=== PATIENT | female | born 1945 | race Caucasian/White ===

== ENCOUNTER 2016-10-01 07:32 | Day surgery (SDC) | payer MEDICARE ==
--- NOTE | ~2016-10-01 | OP ---
Record Of Operation [facility] [address] [place]. [address] NAME: JAC MEJIA : 41 [place] [facility] [id number] AGE: 71 ADM/REG DATE : 10/01/16 MR#: [id number] REPORT SERV DATE: 10/01/16 DICTATED BY: HAN BARRERA JR. DATE: 10/01/16 REPORT STATUS : Draft TRANSCRIBED BY: MODL DATE: 10/01/16 DATE OF PROCEDURE: REASON FOR SURGERY: This 71-year-old patient has been evaluated extensively concerning recurrent carcinoma of the left breast. She was initially treated in 2002 with breast preservation surgery, radiation therapy, chemotherapy, and five years of tamoxifen. She has developed a very interesting problem that the only tumor found on the left was an incidental ultrasound finding that really had nothing to do with her presentation, although lobule in the different area. A 3 mm lesion was biopsied and was showing to be hormone favorable malignancy. She did have a positive lymph node on needle biopsy, but this appears to be a solitary on the MRI and other evaluation. Her case was presented at the weekly breast conference and the options of mastectomy with or without reconstruction has been offered. Unfortunately, an axillary dissection is now in order as she has a clinically involved node in the previously irradiated breast. The risk of lymphedema will escalate at this point to a size 1 and 4, but specifically, there has been no added port for the axilla, and so hopefully the risk of lymphedema is actually somewhat less than this. The potential wound healing issues have been addressed with the patient's previous radiation therapy. PREOPERATIVE DIAGNOSIS: Recurrent carcinoma of the left breast. POSTOPERATIVE DIAGNOSIS: Recurrent carcinoma of the left breast. SURGEON: Han Barrera M.D. SURGERIES PERFORMED: Left mastectomy and axillary dissection. PROCEDURE IN DETAIL: Under general anesthesia, the patient was prepped and draped in supine position in the usual sterile fashion. A type of mastectomy was performed using a superior based flap down to the inframammary fold. The entire breast mound was marked, and the superior base flap was marked and incised. Flaps were elevated in each direction to incorporate the entire breast mound. This was tailored into the low axilla. The breast was then removed from above downward incorporating the fascia. An axillary dissection was then performed. With adequate retraction of the muscles, level 2, then level 1 nodes were dissected from medial to lateral from off the axillary vein. Bridging lymphatic and venous tissue were clipped and divided. The long thoracic and thoracodorsal bundles were preserved. As the dissection was carried off inferiorly, the specimen was removed and oriented for pathology. The wound was irrigated and hemostasis was obtained. Two suction drains were inserted and secured to the skin with the Prolene. The wound was closed with two layers of Monocryl. The patient tolerated the procedure well without complications. ESTIMATED BLOOD LOSS: Less than 25 mL. Record Of Operation [address] [place]. [address] NAME: JAC MEJIA : 41 [place] [facility] [place]#: [id number] AGE: 71 ADM/REG DATE : 10/01/16 MR#: [id number] REPORT SERV DATE: 10/01/16 DICTATED BY: HAN BARRERA JR. DATE: 10/01/16 REPORT STATUS : Draft TRANSCRIBED BY: MYRON DATE: 10/01/16 SPONGE COUNT: Correct. /MYRON Han Barrera Jr., M.D. / [id number] CC: Dimitrios Baez Jr., M.D. [facility]
[~2016-10-01 07:32] MED LIST: ACEBUTOLOL PO; ADVAIR INH; ALLEGRA180 PO; ATV1 PO; CITRACAL PO; FISH OIL1200 MG PO; FLONASE NAS; FLURBIPROFEN100 MG OR; ILA60 PO; KLOR-CON 1010 MEQ PO; LEVOTHYROXIN25 MCG PO; MAGOX4 PO; MAX25 PO; MONODOX100 MG PO; MUCINEX600 MG PO; MULTIPLE VIT PO; NOLV10 PO; OCUVITE PO; OSTEO BI-FLEX1 EACH PO; PLAVIX PO; PROBIOTIC; PROTONIX PO; SINGULAIR5 PO; STERAPRED DS10 MG; TEKTURNA300 MG PO; VENTOLIN HFA INH; VITAMIN D31000 UNIT PO; VYTORIN 10/20 T1 TAB PO; XOPEN0.5ML INH; ZOCOR40 PO
== END 2016-10-01 16:37 | disposition home or self-care (01) ==
LOC: SDC 07:32
PROVIDERS: Surgery Surgical Oncology
PROC: 0HBU0ZZ Excision of Left Breast, Open Approach (ICD-10-PCS; principal; 2016-10-01 09:30)
DX: C77.3 Secondary and unspecified malignant neoplasm of axilla and upper limb lymph nodes (principal); J47.9 Bronchiectasis, uncomplicated; I25.10 Atherosclerotic heart disease of native coronary artery without angina pectoris; I10 Essential (primary) hypertension; E03.9 Hypothyroidism, unspecified; M19.90 Unspecified osteoarthritis, unspecified site; Z85.3 Personal history of malignant neoplasm of breast; Z17.0 Estrogen receptor positive status [ER+]; Z90.49 Acquired absence of other specified parts of digestive tract; Z88.1 Allergy status to other antibiotic agents; Z79.2 Long term (current) use of antibiotics; Z79.899 Other long term (current) drug therapy; Z98.890 Other specified postprocedural states
CPT/HCPCS: 71020; 88304; 88309; 88341; 88342; 88360; 93005; A9270-GY; J0690; J1170; J2250; J2405; J3010